=== PATIENT | male | born 1985 | race Caucasian/White ===

== ENCOUNTER 2024-10-18 14:57 | Outpatient (CLI) | payer BC, SELFPAY | END 2024-10-18 14:58 | disposition home or self-care (01) | PROVIDERS: Visit Provider Family Medicine | DX: L81.9 Disorder of pigmentation, unspecified (principal); R14.0 Abdominal distension (gaseous); R06.02 Shortness of breath; R63.5 Abnormal weight gain | CPT/HCPCS: 80053; 80061 ==

== ENCOUNTER 2024-10-19 14:45 | Outpatient (CLI) | payer BC, SELFPAY | END 2024-10-19 14:46 | disposition home or self-care (01) | LOC: US 14:48 | PROVIDERS: PCP Family Medicine; Visit Provider Family Medicine | DX: R14.0 Abdominal distension (gaseous) (principal); K76.0 Fatty (change of) liver, not elsewhere classified; R16.0 Hepatomegaly, not elsewhere classified; L81.9 Disorder of pigmentation, unspecified | CPT/HCPCS: 76705 ==

== ENCOUNTER 2025-05-02 11:26 | Outpatient (CLI) | payer BC, SELFPAY ==
--- NOTE | 2025-05-14 08:47 | W.PM.SLEEP ---
Sleep Study Details Details Interpreting Provider: Angela Date of Sleep Study: 05/02/25 Sleep Study Details: STUDY TYPE:? home unattended ? BMI:? 27.76 ORDERING PROVIDER:Fili Pryor INDICATION:? concern for sleep apnea ? SLEEP SUMMARY:? 305 minutes monitored RESPIRATORY SUMMARY:? AHI 29.9 per rule 1A, 18.7 per CMS guideline Low oxygen 74 10.9% of study oxygen less than 90% Snoring 97.1% PERIODIC LIMB MOVEMENTS OF SLEEP:? not recorded CARDIAC:?range 55-102, mean 71.3 beats per minute IMPRESSION:? moderate very nearly severe obstructive sleep apnea per rule 1A, moderate apnea per CMS guideline Significant hypoxemia noted during study RECOMMENDATION: treatment options include CPAP AutoSet her in-lab titration. Dental appliance is an option but is much less likely to be effective.
== END 2025-05-02 11:27 | disposition home or self-care (01) ==
LOC: SLEEP 11:26
PROVIDERS: PCP Family Medicine; Visit Provider Family Medicine
DX: G47.33 Obstructive sleep apnea (adult) (pediatric) (principal)
CPT/HCPCS: 95806